=== PATIENT | male | born 1940 | race Caucasian/White ===

== ENCOUNTER 2016-10-23 14:07 | Inpatient (IN) | payer MEDICARE ==
[~2016-10-23] VITALS: Ht 180.3 cm; Wt 71.2 kg
[~2016-10-23 14:07] MED LIST: CITA20TA5 PO; CLOP75TA PO; FENO134C PO; METO50TA10 PO; TAMS0.4C2 PO; TAMS0.4C97 PO
[2016-10-23] MEDS ORDERED: IV NORMAL SALINE 1,000ML 1,000 ML ONE (14:22)
[2016-10-23] MEDS ORDERED: IV NORMAL SALINE 1,000ML 1,000 ML IV SCH (14:26)
--- NOTE | 2016-10-23 14:39 | PHYS DOC ---
General Chief Complaint: HYPOTENSION Stated Complaint: FEVER,LOW BP,DIZZY Time Seen by MD: 14:26 Source: patient, other (Esteban Sinha, Dr Ramirez records) Exam Limitations: no limitations Problems: History of Present Illness Initial Comments Pt is 76/M h/o CAD sent from PCP office to ED for fever, hypotension. Pt states for the past three days he's had nonproductive cough and nasal congestion. Fever yesterday 101.5 and at doctor office today 101.4 responsive to tylenol (afebrile in ED). Pt has dementia history, spouse states that when pt temp elevated his dementia appeared to worsen (confusion, memory) however these sx resolved with temperature control. Pt states that this morning he had some dizziness when up and active otherwise denies any pain complaints, no cp/ sob/howard/abdominal discomfort/bowel or bladder symptoms. ED VS: 98.6, 72, 92/52, 93% RA Timing/Duration: other (3 days) Severity: moderate Modifying Factors: worse with movement, improves with rest Associated Symptoms: fever/chills, malaise, other Allergies: Coded Allergies: No Known Drug Allergies (Unverified , 02/01/14) Past Medical History Medical History: other (dementia, DJD, depression, HLP, HTN, CAD, MT, Parkinson 's) Surgical History: other (tonsillectomy, CABG x 4, cardiac stents x 2, back surgery) Social History Smoker: quit greater than 1 year (quit in 1974, 3 PPD history x "years"), cigarettes Alcohol: none Drugs: none Review of Systems Constitutional: see HPI Respiratory: see HPI Cardiovascular: denies chest pain, denies palpitations, denies syncope Gastrointestinal: denies diarrhea, denies nausea, denies vomiting Genitourinary: denies dysuria, denies frequency, denies hematuria Musculoskeletal: denies back pain, denies joint swelling, denies neck pain Psychiatric/Neurological: see HPI, denies headache Physical Exam General Appearance: no apparent distress Eyes: bilateral eye normal inspection, bilateral eye PERRL, bilateral eye EOMI Ear, Nose, Throat: hearing grossly normal, normal ENT inspection, normal pharynx (dry membranes) Neck: non-tender, supple Respiratory: chest non-tender, no respiratory distress, other (coarse BS at bases good air movement ) Cardiovascular: normal peripheral pulses, regular rate, rhythm, no edema Gastrointestinal: non tender, soft Back: no CVA tenderness, no vertebral tenderness Extremities: non-tender, normal inspection, no pedal edema 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 PATIENT: JODY GASTON ACCOUNT: [id number] : 1940 LOCATION: ER AGE: 76 SEX: M EXAM STATUS: REG ER ORD. PHYSICIAN: NICOLA JERNIGAN DO REASON: fever, cough, hypotension, elev d-dimer PROCEDURE: CT ANGIOGRAPHY CHEST CTA of the chest with contrast, 10/23/2016: History: Cough, elevated d-dimer Multidetector CT imaging was performed following an IV bolus injection of iodinated contrast material. Multiplanar reconstructions were produced including coronal MIP images. The central pulmonary arteries are well opacified and no filling defects are seen to suggest pulmonary emboli. There is calcific plaquing of the thoracic aorta without evidence of aneurysm. Coronary artery calcifications are present. There has been a previous median sternotomy. There are subcarinal and right hilar calcified lymph nodes. No mediastinal or hilar adenopathy is seen. There are dependent opacities in the lungs, worse on the left. The findings suggest atelectasis, although a component of pneumonia cannot be excluded. There is a 6 mm nodule in the lateral aspect of the right lower lobe as seen on image 82 of series #5. In retrospect a similar nodule was present on an old study from 05/14/2005. This is probably a granuloma. No pleural fluid is present. Numerous small dense gallstones are present along the posterior wall of the gallbladder. No pericholecystic edema is seen. There is mild bilateral renal cortical scarring. Small bilateral renal cysts are present. IMPRESSION: 1. No CT evidence of central pulmonary emboli. 2. Coronary artery disease. 3. Moderate dependent atelectasis in both lungs, left greater than right. A component of pneumonia on the left cannot be excluded. 4. Cholelithiasis. PQRS Compliance Statement: One or more of the following individualized dose reduction techniques were utilized for this examination: 1. Automated exposure control 2. Adjustment of the mA and/or kV according to patient size 3. Use of iterative reconstruction technique DICTATED AND SIGNED BY: LENKA MENDOZA MD DATE: 10/23/16 7001 CC: ROLY RAMIREZ MD; NICOLA JERNIGAN DO ~ WBC 12, plt 139, d-dimer 1.92, lactic acid 1.1, t. bili 1.4, BNP 592, UA unremarkable, UDS/influenza A and B neg. Pt remains hypotensive after 2L NS IV, rocephin/levaquin, duoneb. No new/ progressive symptoms, pt is agreeable to hospital admission. 1718: Dr Burnette accepts inpt admission for hydration, IV antibiotics, observation. Departure Time of Disposition: 17:18 Disposition: 09 ADMITTED INPATIENT Diagnosis: LLL Pneumonia, hypotension, h/o CAD Condition: STABLE Additional Instructions: Inpt ICU admission Dr Burnette is accepting NICOLA JERNIGAN DO October 23, 2016 14:39
--- NOTE | 2016-10-23 14:45 | RAD ---
Indication hypotension. Protocol study. A single view of the chest was obtained and is compared to an examination 04/23/2015. Postoperative changes are noted. Inspiratory effort is not as good as on the previous exam. There is some minimal volume loss at the left lung base likely reflecting atelectasis. A definite consolidated pneumonia in either lung is not seen. Significant pleural fluid is not present. There is no pneumothorax. IMPRESSION: Suboptimal inspiratory effort. Minimal volume loss at the left lung base likely reflects atelectasis or scar
[2016-10-23 14:49] LABS: BASO # 0.1 x10^3/uL (0.0-0.2); BASO % 1 % (0-3); EOS % 0 % (0-3); HEMATOCRIT 43.6 % (39.0-53.0); HEMOGLOBIN 14.5 g/dL (13.0-17.5); LYMPH # 0.2 x10^3/uL (1.0-4.8); LYMPH % 2 % (24-48); MEAN CORPUSCULAR HEMOGLOBIN 30 pg (25-35); MEAN CORPUSCULAR HGB CONC 33 g/dL (31-37); MEAN CORPUSCULAR VOLUME 90 fL (79-100); MONO # 0.8 x10^3/uL (0.0-1.1); MONO % 7 % (0-9); NEUT # 10.9 x10^3uL (1.8-7.7); NEUT % 91 % (31-73); PLATELET COUNT 139 x10^3/uL (140-400); RED BLOOD COUNT 4.87 x10^6/uL (4.30-5.70); RED CELL DISTRIBUTION WIDTH 15.4 % (11.5-14.5)
[2016-10-23] MEDS ORDERED: cefTRIAXone SODIUM 1 GM VIAL IV ONE (14:53)
[2016-10-23] MEDS ORDERED: IV NORMAL SALINE 50ML 50 ML ONE (14:53)
[2016-10-23] MEDS ORDERED: IPRATRPIUM/ALBUTEROL 0.5/2.5MG 3 ML NEBU. NEB ONE (15:00)
[2016-10-23 15:06] LABS: ALBUMIN 3.4 g/dL (3.4-5.0); ALBUMIN/GLOBULIN RATIO 0.9 (1.0-1.7); CALCIUM 9.3 mg/dL (8.5-10.1); CREATININE 1.3 mg/dL (0.7-1.3); GFR 53.4; POTASSIUM 3.6 mmol/L (3.5-5.1); TOTAL BILIRUBIN 1.4 mg/dL (0.2-1.0); TOTAL PROTEIN 7.3 g/dL (6.4-8.2)
[2016-10-23 15:08] LABS: INFLUENZA A PATIENT NEGATIVE (NEGATIVE); INFLUENZA B PATIENT NEGATIVE (NEGATIVE)
[2016-10-23] MEDS ORDERED: IOHEXOL 300 MG/ML 75 ML VIAL. IV ONE (16:15)
[2016-10-23 16:17] LABS: BILIRUBIN,URINE NEG (NEG); CLARITY,URINE HAZY; COLOR,URINE YELLOW; GLUCOSE,URINE NEG (NEG); NITRITE,URINE NEG (NEG); UROBILINOGEN,URINE 1 mg/dL (0.2 mg/dL)
[2016-10-23 16:18] LABS: BARBITURATES NEG (NEG); BENZODIAZEPINES NEG (NEG); CANNABINOIDS NEG (NEG); COCAINE NEG (NEG); METHADONE NEG (NEG); OPIATES NEG (NEG); PHENCYCLIDINE NEG (NEG)
[2016-10-23 16:19] LABS: AMPHETAMINE/METHAMPHETAMINE NEG (NEG)
[2016-10-23 16:21] LABS: BACTERIA,URINE FEW /HPF (0-FEW); HYALINE CASTS, URINE MOD /HPF; SQUAMOUS EPITHELIAL CELL,UR MOD /LPF
--- NOTE | 2016-10-23 16:59 | RAD ---
CTA of the chest with contrast, 10/23/2016: History: Cough, elevated d-dimer Multidetector CT imaging was performed following an IV bolus injection of iodinated contrast material. Multiplanar reconstructions were produced including coronal MIP images. The central pulmonary arteries are well opacified and no filling defects are seen to suggest pulmonary emboli. There is calcific plaquing of the thoracic aorta without evidence of aneurysm. Coronary artery calcifications are present. There has been a previous median sternotomy. There are subcarinal and right hilar calcified lymph nodes. No mediastinal or hilar adenopathy is seen. There are dependent opacities in the lungs, worse on the left. The findings suggest atelectasis, although a component of pneumonia cannot be excluded. There is a 6 mm nodule in the lateral aspect of the right lower lobe as seen on image 82 of series #5. In retrospect a similar nodule was present on an old study from 05/14/2005. This is probably a granuloma. No pleural fluid is present. Numerous small dense gallstones are present along the posterior wall of the gallbladder. No pericholecystic edema is seen. There is mild bilateral renal cortical scarring. Small bilateral renal cysts are present. IMPRESSION: 1. No CT evidence of central pulmonary emboli. 2. Coronary artery disease. 3. Moderate dependent atelectasis in both lungs, left greater than right. A component of pneumonia on the left cannot be excluded. 4. Cholelithiasis. PQRS Compliance Statement: One or more of the following individualized dose reduction techniques were utilized for this examination: 1. Automated exposure control 2. Adjustment of the mA and/or kV according to patient size 3. Use of iterative reconstruction technique
[2016-10-23] MEDS ORDERED: ACETAMINOPHEN 325 MG TABLET PO PRN (17:30)
[2016-10-23] MEDS ORDERED: ONDANSETRON PF 4 MG/2 ML VIAL. IV PRN (17:30)
[2016-10-23 18:49] VITALS: BP 113/66
[2016-10-23] MEDS: IV NORMAL SALINE 1,000ML 1,000 ML IV SCH (19:23)
[2016-10-23 19:30] VITALS: BP 119/59
[2016-10-23 20:30] VITALS: BP 121/66
[2016-10-23] MEDS: IPRATRPIUM/ALBUTEROL 0.5/2.5MG 3 ML NEBU. NEB SCH (20:36)
[2016-10-23 21:30] VITALS: BP 121/63
[2016-10-23 22:30] VITALS: BP 137/66
--- NOTE | 2016-10-23 22:51 | ACF ---
Admission Criteria Forms PNEUMONIA, COMMUNITY ACQUIRED Clinical Indications for Admission to Inpatient Care ( Place 'X' for any and all applicable criteria): Admission is indicated for ANY ONE of the following (1)(2)(3): [ ]I. Hypoxemia indicated by ANY ONE of the following: [ ]a) Oxygen saturation less than 90% while breathing room air [ ]b) PO2 less than 60 mm Hg (8.0 kPa) while breathing room air [ ]c) Chronic lung disease with significant deterioration from baseline oxygenation [ ]II. Appropriate diagnostic testing and treatment unavailable in outpatient or recovery facility (eg,testing or infection control measures unavailable(10) [X ]III. Moderate-risk or high-risk category patients (Pneumonia Severity Index (PSI) class IV or V, or CURB-65 score of 3 or greater). [ ]IV. Outpatient treatment failure as indicated by ANY ONE of the following(9) : [ ]a) Failure to respond to antibiotic (eg, resistant organism) [ ]b) Clinically significant adverse effects from medication (eg, vomiting) [ ]c) Complications of pneumonia (eg, empyema, bacteremia) [ ]d) Significant worsening of comorbid cond necessitating inpatient care (eg, chronic heart failure) [ ]V. Intermediate-risk category patients (eg, PSI class III or CURB-65 score 2) who do not improve with initial therapy and observation. [ ]. Immunocompromised patients (eg, AIDS, chronic steroid use) at moderate or high risk based on clinical evaluation. [ ]VII. Complicated pleural effusions (eg, exudative, loculated) [ ]VIII.Hemodynamic instability [ ] IX. Altered mental status that is severe or persistent. [ ]X. Dehydration that is severe or persistent. [ ]XI. Bacteremia [ ]XII. Respiratory finding (eg. tachypnea) that do not respond to outpatient or observation care treatment Extended stay beyond goal length of stay may be needed for (20) [ ]a) Unclear diagnosis [ ]b) Pleural disease [ ]c) Severe pneumonia or treatment failure (25 [ ]d) Respiratory failure (anticipate invasive or noninvasive ventilatory support) [ ]e) Abnormal serum electrolytes (serum Na concentration less than 135 mEq/L (mmol/L) (32)(33) [ ]f) Clinically significant comorbid illness (eg, heart failure, atrial fibrillation with rapid heart rate, alcohol withdrawal, renal insufficiency)(34)(35) [ ]g) Comorbid acute exacerbation of COPD(36) [ ]h) Concomitant diagnosis of malignancy that may be associated with malnutrition, immunologic impairment, or bronchial obstruction. [ ]i) Concomitant altered mental status [ ]j) Culture-identified Gram-negative or antibiotic-resistant organism (eg, Pseudomonas, methicillin-resistant Staphylococcus aureus)(30) [ ]k) Healthcare-associated pneumonia The original [facility] content created by [employer] has been revised. The portions of the content which have been revised are identified through the use of italic text or in bold, and [facility] has neither reviewed nor approved the modified material. All other unmodified content is copyright [employer] [facility] [email or web address]. Please see references footnoted in the original [facility] edition 2016 Admission Criteria Met?: Yes BRAD WALSH October 23, 2016 22:51
[2016-10-23 23:30] VITALS: BP 106/59
[2016-10-24] VITALS (23 sets, daily range): BP systolic 105–154; BP diastolic 59–85
[2016-10-24] MEDS ORDERED: OXYB5TAB PO (01:18)
[2016-10-24] MEDS ORDERED: CARB1TAB22 PO (01:18)
[2016-10-24] MEDS ORDERED: MEMA5TAB14 PO (01:18)
[2016-10-24] MEDS ORDERED: ESOM40CA PO (01:18)
[2016-10-24] MEDS ORDERED: DONE10TA7 PO (01:18)
[2016-10-24] MEDS ORDERED: ATOR80TA72 PO (01:18)
[2016-10-24] MEDS ORDERED: METO25TA4 PO (01:18)
[2016-10-24] MEDS: IV NORMAL SALINE 1,000ML 1,000 ML IV SCH ×4 (01:23→23:20)
--- NOTE | 2016-10-24 01:37 | EKG ---
[address] [address] Test Date: 2016-10-23 Test Time: 14:32:30 Pat Name: JODY GASTON Department: Room: [facility] 1 Gender: M [employer] Practitioner: ERICK : 1940 Requested By: NICOLA JERNIGAN Order Number: [id number] Reading MD: Mac Mackey Measurements Intervals [place] Rate: 66 P: 23 HI: 164 QRS: -43 QRSD: 114 T: -27 QT: 428 QTc: 451 Interpretive Statements SINUS RHYTHM ATRIAL PREMATURE COMPLEX(ES) ABNORMAL LEFT AXIS DEVIATION PRIOR INFERIOR INFARCT NON-SPECIFIC ST/T CHANGES Electronically Signed On 10-27-2016 9:44:31 CDT by Mac Mackey
[2016-10-24 04:48] LABS: BASO % 0 % (0-3); EOS % 0 % (0-3); HEMATOCRIT 38.6 % (39.0-53.0); HEMOGLOBIN 12.7 g/dL (13.0-17.5); LYMPH # 0.5 x10^3/uL (1.0-4.8); LYMPH % 6 % (24-48); MEAN CORPUSCULAR HEMOGLOBIN 30 pg (25-35); MEAN CORPUSCULAR HGB CONC 33 g/dL (31-37); MEAN CORPUSCULAR VOLUME 92 fL (79-100); MONO # 0.7 x10^3/uL (0.0-1.1); MONO % 7 % (0-9); NEUT # 7.6 x10^3uL (1.8-7.7); NEUT % 87 % (31-73); PLATELET COUNT 115 x10^3/uL (140-400); RED CELL DISTRIBUTION WIDTH 15.4 % (11.5-14.5); WHITE BLOOD COUNT 8.8 x10^3/uL (4.0-11.0)
[2016-10-24 04:57] LABS: CALCIUM 8.1 mg/dL (8.5-10.1); GFR 72.3; POTASSIUM 3.6 mmol/L (3.5-5.1)
[2016-10-24] MEDS: IPRATRPIUM/ALBUTEROL 0.5/2.5MG 3 ML NEBU. NEB SCH ×3 (05:25→17:21)
[2016-10-24] MEDS ORDERED: MAGNESIUM SULFATE 2GM 50 ML IV ONE (06:30)
[2016-10-24] MEDS: TAMSULOSIN 0.4 MG CAP.ER.24H. PO SCH (09:20)
[2016-10-24] MEDS: CITALOPRAM 20 MG TABLET. PO SCH (09:20)
[2016-10-24] MEDS: FENOFIBRATE NANOCRYSTALLIZED 145 MG TABLET PO SCH (09:20)
[2016-10-24] MEDS: CLOPIDOGREL BISULFATE 75 MG TABLET PO SCH (09:31)
[2016-10-24] MEDS ORDERED: MULT-245 PO (11:46)
[2016-10-24] MEDS ORDERED: NAPR375T3 PO (11:46)
[2016-10-24] MEDS ORDERED: FISH12002 PO (11:47)
[2016-10-24] MEDS ORDERED: CHOL10002 PO (11:49)
[2016-10-24] MEDS ORDERED: CHOL100013 PO (11:49)
[2016-10-24] MEDS ORDERED: VITA100020 PO (11:51)
[2016-10-24] MEDS ORDERED: PYRI100T3 PO (11:54)
[2016-10-24] MEDS ORDERED: ASCO10002 PO (11:55)
[2016-10-24] MEDS ORDERED: CARBIDOPA/LEVODOPA 25/100MG TABLET PO ONE (14:00)
[2016-10-24] MEDS ORDERED: CARBIDOPA/LEVODOPA 25/100MG TABLET PO SCH (14:00)
--- NOTE | 2016-10-24 15:07 | HP ---
ADMIT DATE: 10/23/2016 HISTORY OF PRESENT ILLNESS: The patient is a 76-year-old male patient, who apparently sent to the Emergency from his primary care physician on account of fever and hypotension. Apparently, the patient has been having cough and nasal congestion. The cough is mostly dry. He also had fever up to 101.5, that has responded to Tylenol as he was afebrile by the time he arrived to the Emergency Room and his stated that he became more confused after he became febrile. He also felt dizzy when he stood up, otherwise his pain mostly is in the left side of the chest, mostly worse when taking a deep breath; however, denied any shortness of breath. Denied any other complaint. He was evaluated in the Emergency Room and it was found to have leukocytosis with a white cell count 12,000. His D-dimer was high and this prompted CT scan of the chest with PE protocol, which showed that he has left lower lobe infiltrate and the patient was admitted with diagnosis of community-acquired pneumonia, was started on IV ceftriaxone as well as Levaquin. We held his blood pressure medication and received large amount of fluid. Systolic pressure was only 17 on arrival to the Emergency Room. PAST MEDICAL HISTORY: Significant for hypertension, hyperlipidemia, coronary artery disease, status post myocardial infarction x 3. He underwent coronary artery bypass graft surgery in 1998. He has also had PTCA and stent deployment x 3. He is known to have benign prostatic hypertrophy. He was diagnosed with Parkinson's disease about a year ago, has severe osteoarthritis of his both knee joints and in fact knee replacement was recommended and also severe rotator cuff tear of his left shoulder and he is also a candidate for left shoulder replacement. PAST SURGICAL HISTORY: Significant for back surgery, coronary artery bypass graft surgery, tonsillectomy, PTCA and stent deployment x 3. ALLERGIES: He has no known drug allergies. MEDICATIONS: He is currently on following medications: He is on ascorbic acid 1000 mg once a day, atorvastatin 80 mg at bedtime, carbidopa/levodopa 25/100 three times a day, cholecalciferol for vitamin D3 1000 units once a day, citalopram hydrobromide 20 mg once a day, Plavix 75 mg once a day, donepezil 10 mg once a day, Nexium capsule 40 mg once a day, fenofibrate 134 mg once a day, omega-3 fatty acids 1200 mg twice a day, Namenda 5 mg twice a day, metoprolol 25 mg twice a day, multivitamin 1 tablet once a day, naproxen 375 mg twice a day, oxybutynin chloride 5 mg once a day, pyridoxine 100 mg once a day, tamsulosin 0.4 mg at bedtime, vitamin E mixed 1000 units p.o. b.i.d. FAMILY HISTORY: He has one sister, who is younger and healthy. His father at age of 85 because of congestive heart failure. Mother at age of 76 because of cerebral aneurysm. SOCIAL HISTORY: He is , has 1 son and 1 daughter. He is an ex-smoker, quit in 1974. He does not drink alcohol. He used to be an auto transmission mechanic and also worked for [employer]. REVIEW OF SYSTEMS: The patient denied any blurring of vision, cataract, glaucoma or macular degeneration. 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 Denied any nosebleeds, stuffy nose or postnasal drip. Denied any sore throat, sore tongue, toothache, hoarseness of voice or difficulty swallowing. Denied any nausea, vomiting, diarrhea or constipation. Denied any hematemesis, melena or hematochezia. Denied any dysuria, frequency or hematuria. Did complain of left-sided chest pain that is stabbing in nature, worse when taking a deep breath. Denied any shortness of breath, but has cough that is mostly dry. Denied any hemoptysis. He did have fever, but no chills or rigors. Did complain of dizziness. PHYSICAL EXAMINATION: GENERAL: On arrival to the Emergency Room, the patient showed no pallor, jaundice, cyanosis, or thyromegaly. No jugular venous distention. No lower limb edema. VITAL SIGNS: His heart rate was 72, blood pressure was 94/58, temperature was 98.6, respiratory rate was 16, and oxygen saturation was 93% on room air. HEAD, EYES, EARS, NOSE AND THROAT: Showed normocephalic, atraumatic. NECK: Supple. HEART: Showed normal first and second heart sounds with no gallop, rub or murmur. CHEST: Shows central trachea, equal bilateral expansion, air entry. Vesicular breath sounds with crepitation mostly in the left side posteriorly. I could not really appreciate any rhonchi. ABDOMEN: Distended, soft, nontender. No guarding or rigidity. No organomegaly. All hernial orifices intact. Bowel sounds normal. NEUROLOGIC: He is very hard of hearing, otherwise all other cranial nerves are intact. He has prominent parkinsonian tremors, more prominent in the right upper extremity; however, he apparently able to ambulate with a cane. LABORATORY DATA: On admission showed a white cell count 12,000, hemoglobin was 14.5, hematocrit 43.6, MCV 90 and platelet count of 139,000. His chemistry showed serum sodium of 139, potassium 3.6, chloride 103, bicarbonate 26, anion gap of 10, BUN 20, creatinine 1.3, estimated GFR was 53 mL per minute. His glucose was 129, calcium was 9.3. Total bilirubin slightly elevated; however, AST, ALT, alkaline phosphatase were normal. His CK was only 64, beta natriuretic peptide was 592. Total protein was 7.3, albumin 3.4. His prothrombin time was 11.7, INR 1.1, aPTT 27 and D-dimer was 1.92. Urinalysis was essentially unremarkable and urine toxicology screen was negative. His influenza A and B were negative. His chest x-ray showed suboptimal inspiratory effort showed minimal volume loss at the left lung base, likely reflect atelectasis scar; however, given that his D-dimer was elevated. CT angio of the chest showed that he has no CT evidence of central pulmonary emboli, has coronary artery disease, has moderate dependent atelectasis in both lungs left greater than right. Component of pneumonia on the left cannot be excluded. He has also cholelithiasis. IMPRESSION AND PLAN: The patient was admitted with following admission diagnoses: Community-acquired pneumonia involving left lower lobe sepsis with hypotension and fever. The patient did not have tachycardia because he is on metoprolol. Other medical problems including hyperlipidemia, coronary artery disease, status post CABG, has Parkinson's disease, benign prostatic hypertrophy, severe osteoarthritis of both knee joints and severe rotator cuff tear of the left shoulder. We will continue with IV ceftriaxone as well as levofloxacin. We will hold his metoprolol for now and decide on further management accordingly. JANETT DU MD DR: OLIVER/kita JOB#: [id number] / [id number]
[2016-10-24] MEDS: MEMANTINE 5 MG TABLET. PO SCH (20:44)
[2016-10-24] MEDS: CARBIDOPA/LEVODOPA 25/100MG TABLET PO SCH (20:45)
[2016-10-24] MEDS: OMEGA-3 FATTY ACIDS/FISH OIL 1,000 MG CAPSULE. PO SCH (20:45)
[2016-10-24] MEDS: NAPROXEN 250 MG TABLET PO SCH (20:45)
[2016-10-24] MEDS ORDERED: ATORVASTATIN CALCIUM 20 MG TABLET PO SCH (21:00)
[2016-10-24] MEDS ORDERED: IV NORMAL SALINE 1,000ML 1,000 ML ONE (23:16)
[2016-10-25] VITALS (14 sets, daily range): BP systolic 111–153; BP diastolic 73–107
--- NOTE | 2016-10-25 04:29 | PN ---
DATE: 10/24/2016 SUBJECTIVE: The patient is resting slightly propped up in bed, in no apparent distress. He feels generally much better. He is still complaining of left-sided chest pain, which is sharp, stabbing, aggravates by taking a deep breath; however, he has no fever. His blood pressure is somewhat better. PHYSICAL EXAMINATION: GENERAL: When I examined him, he looked well and was clearly in no apparent respiratory distress. No pallor, jaundice, cyanosis, lymphadenopathy or thyromegaly. No jugular venous distention. No limb edema. VITAL SIGNS: His heart rate was 78, blood pressure was 120/73, temperature was 98.4, respiratory rate was 20, and oxygen saturation was 97% on room air. HEAD, EYES, EARS, NOSE AND THROAT: Showed normocephalic, atraumatic. NECK: Supple. HEART: Showed normal first and second heart sounds with no gallop, rub or murmur. CHEST: Shows central trachea, equal bilateral expansion, air entry, vesicular sounds with crepitation mostly in the left side posteriorly. I could not appreciate any rhonchi. ABDOMEN: Distended, soft, nontender. No guarding or rigidity. No organomegaly. Hernial orifices intact. Bowel sounds normal. NEUROLOGIC: He is very hard of hearing and has prominent parkinsonian tremors, mostly in his right upper extremity. He apparently is able to ambulate with a cane. His intake was 4170, output was 1200. LABORATORY DATA: His lab work this morning showed a white cell count of 8800, hemoglobin 12.7, hematocrit 38.6, MCV 92, and platelet count of 115,000. His chemistry this morning showed a serum sodium 142, potassium 3.6, chloride 108, bicarbonate 22, anion gap of 12, BUN 15, creatinine 1, estimated GFR was 72 mL per minute. His glucose was 103, calcium was 8.1, magnesium was 1.7. He has had 3 sets of cardiac enzymes that were all negative, showed no evidence of myocardial infarction. PLAN: To continue with IV antibiotic in the form of levofloxacin as well as ceftriaxone. Continue with IV fluid for now and cut down to maybe 100 mL per hour. I will hold his beta-blockers for the time being. I will add SCDs for DVT prophylaxis. JANETT DU MD DR: Kristyn JOB#: [id number] / [id number]
[2016-10-25 06:12] LABS: BASO % 0 % (0-3); EOS # 0.2 x10^3/uL (0.0-0.7); EOS % 3 % (0-3); HEMATOCRIT 38.8 % (39.0-53.0); LYMPH # 0.6 x10^3/uL (1.0-4.8); LYMPH % 11 % (24-48); MEAN CORPUSCULAR HEMOGLOBIN 30 pg (25-35); MEAN CORPUSCULAR HGB CONC 34 g/dL (31-37); MEAN CORPUSCULAR VOLUME 89 fL (79-100); MONO # 0.6 x10^3/uL (0.0-1.1); MONO % 10 % (0-9); NEUT # 4.5 x10^3uL (1.8-7.7); NEUT % 77 % (31-73); PLATELET COUNT 128 x10^3/uL (140-400); RED BLOOD COUNT 4.35 x10^6/uL (4.30-5.70); WHITE BLOOD COUNT 5.8 x10^3/uL (4.0-11.0)
[2016-10-25 06:30] LABS: ALBUMIN 2.6 g/dL (3.4-5.0); ALBUMIN/GLOBULIN RATIO 0.7 (1.0-1.7); CALCIUM 8.6 mg/dL (8.5-10.1); GFR 72.3; POTASSIUM 3.7 mmol/L (3.5-5.1); TOTAL BILIRUBIN 0.5 mg/dL (0.2-1.0); TOTAL PROTEIN 6.3 g/dL (6.4-8.2)
[2016-10-25] MEDS ORDERED: PANTOPRAZOLE 40 MG TABLET. PO SCH (07:30)
[2016-10-25] MEDS: CITALOPRAM 20 MG TABLET. PO SCH (08:48)
[2016-10-25] MEDS: OMEGA-3 FATTY ACIDS/FISH OIL 1,000 MG CAPSULE. PO SCH (08:48)
[2016-10-25] MEDS: TAMSULOSIN 0.4 MG CAP.ER.24H. PO SCH (08:48)
[2016-10-25] MEDS: FENOFIBRATE NANOCRYSTALLIZED 145 MG TABLET PO SCH (08:49)
[2016-10-25] MEDS: CLOPIDOGREL BISULFATE 75 MG TABLET PO SCH (08:49)
[2016-10-25] MEDS: CARBIDOPA/LEVODOPA 25/100MG TABLET PO SCH ×2 (08:49→13:49)
[2016-10-25] MEDS ORDERED: OXYBUTYNIN CHLORIDE 5 MG TABLET PO SCH (09:00)
[2016-10-25] MEDS ORDERED: MULTIVITAMIN with MINERAL TABLET. PO SCH (09:00)
[2016-10-25] MEDS ORDERED: CHOLECALCIFEROL (VITAMIN D3) 1,000 UNIT TABLET PO SCH (09:00)
[2016-10-25] MEDS ORDERED: ASCORBIC ACID 500 MG TABLET PO SCH (09:00)
[2016-10-25] MEDS ORDERED: PYRIDOXINE 100 MG TABLET. PO SCH (09:00)
[2016-10-25] MEDS ORDERED: DONEPEZIL HCL 10 MG TABLET PO SCH (09:00)
[2016-10-25] MEDS ORDERED: VITAMIN E 1,000 UNIT CAPSULE. PO SCH (09:00)
[2016-10-25] MEDS: NAPROXEN 250 MG TABLET PO SCH (09:20)
[2016-10-25] MEDS: MEMANTINE 5 MG TABLET. PO SCH (09:20)
[2016-10-25] MEDS: IV NORMAL SALINE 1,000ML 1,000 ML IV SCH (12:24)
[2016-10-25] MEDS ORDERED: LEVO500T59 PO (13:17)
[2016-10-25] MEDS ORDERED: CEFP200T PO (13:17)
--- NOTE | 2016-10-25 22:11 | DS ---
DATE OF DISCHARGE: 10/25/2016 HOSPITAL COURSE: This is a 76-year-old male patient who was admitted through the Emergency Department as a referral from his primary care physician's office and because of fever and hypotension. Apparently, his temperature was 101.4 at home and he was also hypotensive with a blood pressure initially of 94/58. His white cell count was high. His lactic acid, however, was only 1.1 millimole per liter was. He was given almost 3 liters of fluid in the Emergency Room, was started on IV ceftriaxone and Levaquin. He did actually extremely well. He has been afebrile for the last 72 hours. PHYSICAL EXAMINATION: VITAL SIGNS: His blood pressure has normalized and as of this afternoon, his heart rate was 83, blood pressure was 133/76, temperature was 98.2, respiratory rate was 12 and oxygen saturation was 96% on room air. HEENT: Showed normocephalic, atraumatic. NECK: Supple. HEART: Showed normal first and second heart sounds with no gallop, rub or murmur. CHEST: Clear to auscultation. Chest shows central trachea, equal bilateral expansion, air entry, with few crepitation, mostly on the left side posteriorly, although they are much less than before. I could not appreciate any rhonchi. ABDOMEN: Slightly distended, soft, nontender. NEUROLOGICAL: He was awake, alert, hard of hearing, but all the cranial nerves are intact. He has a prominent parkinsonian tremor, mostly in his right upper extremity; however, the patient has been out of bedside to the bathroom without difficulty. LABORATORY DATA: His lab work showed that his white cell count has normalized, down to 5800 from 12,000. Although he continued to have thrombocytopenia, as he remained hemodynamically stable, afebrile, and white cell count was normal and has been up and about without, and his blood pressure stabilized, the decision was made to discharge him home to continue antibiotic treatment as an outpatient and to follow with his primary care physician. DISCHARGE MEDICATIONS: Discharged on following medications: cefpodoxime proxetil 200 mg twice a day for 7 days, levofloxacin 500 mg once a day for 7 days. He was continued also on the ascorbic acid 1000 mg once a day, atorvastatin calcium 80 mg once a day, carbidopa/levodopa 25/100 one tablet 3 times a day, cholecalciferol for vitamin D3 2000 international units once a day, citalopram hydrobromide 1 tablet p.o. daily, Plavix 75 mg once a day, Aricept 10 mg once a day, Nexium 40 mg daily, fenofibrate 134 mg 1 capsule daily, fish oil soft gel 1200 mg twice a day, Namenda 5 mg twice a day, metoprolol 25 mg p.o. b.i.d., multivitamin 1 tablet once a day, naproxen 375 mg once a day, oxybutynin chloride 5 mg once a day, pyridoxine 100 mg once a day, tamsulosin 0.4 mg capsule extended release once a day at bedtime and vitamin E 1000 units p.o. b.i.d. FINAL DISCHARGE DIAGNOSES: 1. Sepsis, resolved. 2. Community acquired pneumonia, resolved. The patient is afebrile, hemodynamically stable with normal white cell count. Other issues include hypertension, hyperlipidemia, coronary artery disease status post myocardial infarction x 3 for which he underwent coronary artery bypass graft surgery as well as PTCA and stent deployment, benign prostatic hypertrophy, Parkinson's disease, severe osteoarthritis of both knee joints and left shoulder. JANETT DU MD DR: OLIVER/kita JOB#: [id number] / [id number]
== END 2016-10-25 14:05 | disposition home or self-care (01) | DRG 871 ==
LOC: ER 14:07 → EEVIPCON 14:07 → ER 17:22 → ICU 17:22
PROVIDERS: ADMIT Internal Medicine; ATTEND Internal Medicine
DX: A41.9 Sepsis, unspecified organism (principal); J18.9 Pneumonia, unspecified organism; E78.5 Hyperlipidemia, unspecified; F03.90 Unspecified dementia, unspecified severity, without behavioral disturbance, psychotic disturbance, mood disturbance, and anxiety; G20 Parkinson's disease; I10 Essential (primary) hypertension; I25.10 Atherosclerotic heart disease of native coronary artery without angina pectoris; K80.20 Calculus of gallbladder without cholecystitis without obstruction; N28.1 Cyst of kidney, acquired; N40.0 Benign prostatic hyperplasia without lower urinary tract symptoms; M17.0 Bilateral primary osteoarthritis of knee; F32.9 Major depressive disorder, single episode, unspecified; M75.102 Unspecified rotator cuff tear or rupture of left shoulder, not specified as traumatic; M19.012 Primary osteoarthritis, left shoulder; Z82.49 Family history of ischemic heart disease and other diseases of the circulatory system; I25.2 Old myocardial infarction; Z87.891 Personal history of nicotine dependence; Z95.1 Presence of aortocoronary bypass graft; Z95.5 Presence of coronary angioplasty implant and graft; Z98.890 Other specified postprocedural states; Z79.02 Long term (current) use of antithrombotics/antiplatelets; Z84.89 Family history of other specified conditions
CPT/HCPCS: 36415; 71010; 71275; 80048; 80053; 81001; 82550; 83605; 83735; 83880; 84484; 85027; 85379; 85610; 85730; 87040; 87641; 87804; 93005; 94640; 96361; 96365; 96366; 96367; G0480; G0481; J0696; J1956; J3475; J7620; Q9967; 99285-25; J7030

== ENCOUNTER 2017-04-19 11:53 | Emergency (ER) | payer MEDICARE ==
[~2017-04-19] VITALS: Ht 180.3 cm; Wt 65.8 kg
[~2017-04-19 11:53] MED LIST changes: +ASCO10002 PO; +ATOR80TA72 PO; +CARB1TAB22 PO; +CEFP200T PO; +CHOL100013 PO; +CHOL10002 PO; +DONE10TA7 PO; +ESOM40CA PO; +FISH12002 PO; +LEVO500T59 PO; +MEMA5TAB14 PO; +METO25TA4 PO; -METO50TA10 PO; +METO50TA29 PO; +MULT-245 PO; +NAPR-695 PO; +OXYB5TAB PO; +PYRI100T3 PO; +VITA100020 PO
[2017-04-19 12:45] VITALS: BP 99/56
--- NOTE | 2017-04-19 12:56 | PHYS DOC ---
General Chief Complaint: NOSEBLEED Stated Complaint: NOSE BLEED Time Seen by MD: 12:05 Source: patient Exam Limitations: no limitations Problems: History of Present Illness Initial Comments Patient is a 76-year-old male accompanied to the emergency department with his spouse with a complaint of nosebleed. Patient states he has no prior history of epistaxis, states his nose is been a little dry but he hasn't had any upper respiratory cold symptoms. Earlier today he developed sudden onset nosebleed from his left nare. He was able to get it stopped several times but Blowing his nose and after clearing clots his nose would begin bleeding again. After several attempts to get it to stop his decided to bring him to the emergency department. Patient takes aspirin and Plavix no other anticoagulation, he's not had any other spontaneous bleeding or extra bruising above normal. Upon arrival to the emergency department he has no active bleeding, there is dried blood noted in his left nostril. He denies any lightheadedness dizziness headache palpitations or dyspnea. It was decided that we would observe the patient for short-term to make sure no rebleed and he was agreeable. 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, kidney stones) Surgical History: other (CABG in 1998, cardiac stents 3, back surgery, tonsillectomy, AAA repair and iliac vessel repair last week at [facility] ) Social History Smoker: non-smoker Alcohol: none Drugs: none Constitutional: denies chills, denies diaphoresis, denies fever, denies malaise Eyes: denies blindness, denies blurred vision, denies drainage Ears: denies dizziness, denies pain, denies tinnitus Nose: clots, denies congestion, epistaxis Throat: denies pain, denies discharge, denies neck stiffness, denies painful swallowing Respiratory: denies cough, denies shortness of breath Gastrointestinal: denies nausea, denies vomiting Neurological: denies headache, denies numbness, denies paresthesia Physical Exam General Appearance: WD/WN, no apparent distress Eyes: bilateral eye normal inspection, bilateral eye PERRL, bilateral eye EOMI Nose: dried blood (L nare, R clear) Mouth/Throat: normal mouth inspection, pharynx normal Neck: non-tender, supple Cardiovascular/Respiratory: normal peripheral pulses, no respiratory distress Neurologic/Psychiatric: community advocate II-XII nml as tested, no motor/sensory deficits, alert, normal mood/affect, oriented x 3 Skin: normal color, warm/dry Orders, Labs, Meds I was called to the room because the patient felt like his bleeding stopped and he was ready to go. Recheck did reveal that there is no new bleeding some dried blood remains but the patient has following instructions and hasn't been blowing his nose. I asked him to walk up and down the coulter to see if the increase in blood pressure with cause a rebleed as I didn't want him to get home and run into similar problems. Patient made the trip through the halls without event and advise she is ready to go. Signs and symptoms to monitor as well as indications for urgent return to the department discussed. Similarly I went through [id number] instructions on what to do if rebleeding occurred at home. I discussed this with the patient and his spouse their questions were answered and they expressed agreement and understanding with the treatment plan and follow-up. Departure Time of Disposition: 12:53 Disposition: 01 HOME, SELF-CARE Diagnosis: epistaxis Condition: IMPROVED Patient Instructions: Nosebleed, [id number] Additional Instructions: Please review the patient education materials given by ED staff. As discussed if you have a recurrence of nosebleed you want to initially bend your head forward and take a cold wet washcloth pinch your nostrils together, maintain that position for 15 minutes. If unsuccessful you can try the initial measures again or you may choose to return to the emergency room. [id number] nasal saline drops dosing per package instructions to try to prevent future nosebleeds. Follow-up with your doctor in 2-3 days for recheck, if you have recurrence may need referral to ear nose and throat. Return to the ED with new or changing symptoms. NICOLA JERNIGAN DO Apr 19, 2017 12:56
== END 2017-04-19 13:00 | disposition home or self-care (01) ==
LOC: ER 11:53
DX: R04.0 Epistaxis (principal); E78.5 Hyperlipidemia, unspecified; G20 Parkinson's disease; I10 Essential (primary) hypertension; I25.10 Atherosclerotic heart disease of native coronary artery without angina pectoris; N40.0 Benign prostatic hyperplasia without lower urinary tract symptoms; I25.2 Old myocardial infarction; M17.0 Bilateral primary osteoarthritis of knee; M19.012 Primary osteoarthritis, left shoulder; Z79.82 Long term (current) use of aspirin; Z87.442 Personal history of urinary calculi; Z95.5 Presence of coronary angioplasty implant and graft; Z95.1 Presence of aortocoronary bypass graft
CPT/HCPCS: 99281

== ENCOUNTER → 2017-07-23 | Outpatient (CLI) | payer MEDICARE ==
--- NOTE | 2017-07-24 09:11 | RAD ---
Chest radiograph 07/23/2017 2:00 AM Indication: Cough Comparison: Chest radiograph 10/23/2016 Technique: PA and lateral views of the chest are provided. Findings: Median sternotomy changes are present. Cardiomediastinal silhouette is within normal limits. No pleural effusions, pulmonary vascular congestion or pneumothorax. The lungs are clear. There is a 7 mm nodular density in the left lower lobe projecting over the anterior aspect of the left sixth rib. Osseous structures are normal. Coronary vascular stent graft is noted. Vascular stent is partially profiled in the abdomen. Impression: No acute cardiopulmonary process. There is a 7 mm nodular density in the left lower lobe projecting over the anterior aspect of left sixth rib. This may represent nipple shadow, however a a CT chest may be of benefit.
== END | disposition home or self-care (01) ==
LOC: RAD 16:46
PROVIDERS: ATTEND Nurse Practitioner Family
DX: R05 Cough (principal)
CPT/HCPCS: 71046

== ENCOUNTER → 2017-07-27 | Outpatient (CLI) | payer MEDICARE ==
--- NOTE | 2017-07-27 13:00 | RAD ---
CT chest without contrast 07/27/2017 Clinical indication: Left lung base nodule seen on chest radiograph 07/23/2017 Technique: Multiple CT images of the chest were obtained without contrast. PQRS Compliance Statement: One or more of the following individualized dose reduction techniques were utilized for this examination: 1. Automated exposure control 2. Adjustment of the mA and/or kV according to patient size 3. Use of iterative reconstruction technique Findings: Chest: Heart size is normal without significant pericardial effusion. Prior median sternotomy and CABG. Three-vessel lower [place] coronary artery calcifications. The thoracic aorta is normal in caliber with mild calcified atheromatous disease. No axillary, mediastinal or obvious hilar lymphadenopathy. Mediastinal and right hilar calcified granulomas are noted. The central airways are patent. There is a subpleural noncalcified nodule in the lateral right lower lobe measuring 0.5 cm series 2/image 214. Scattered areas of pleural-parenchymal scarring throughout both lungs. No discrete nodule in the left lung base to account for nodular opacity seen on recent chest radiograph. Calcified granuloma in the posterior left lower lobe. No pleural effusion or pneumothorax. Moderate left glenohumeral arthrosis. There is a nondisplaced angulated anterior right rib fracture deformity. Small sclerotic lesion posterior T5 vertebral body. Limited images of the upper abdomen: Cholelithiasis. Subcentimeter left hepatic cyst. Nonobstructive calculus left kidney measuring 0.4 cm. There is a small left renal cyst. Impression: 1. 0.5 cm right lung noncalcified pulmonary nodule, indeterminate. Follow-up CT chest in 6 months is recommended to assess for stability. 2. No left lung base nodule, chest radiograph finding may have represented nipple shadow. 3. Cholelithiasis. 4. Nonobstructive left nephrolithiasis. 5. Nondisplaced anterior right rib fracture deformity, age indeterminate. Clinical correlation is recommended.
== END | disposition home or self-care (01) ==
LOC: CT 10:56
PROVIDERS: ATTEND Nurse Practitioner Family
DX: S22.31XA Fracture of one rib, right side, initial encounter for closed fracture (principal); J84.10 Pulmonary fibrosis, unspecified; I70.0 Atherosclerosis of aorta; K80.20 Calculus of gallbladder without cholecystitis without obstruction; N20.0 Calculus of kidney; N28.1 Cyst of kidney, acquired; M19.012 Primary osteoarthritis, left shoulder; K76.89 Other specified diseases of liver; X58.XXXA Exposure to other specified factors, initial encounter; Y93.89 Activity, other specified; Y92.89 Other specified places as the place of occurrence of the external cause; Y99.8 Other external cause status
CPT/HCPCS: 71250

== ENCOUNTER → 2018-01-20 | Outpatient (CLI) | payer MEDICARE ==
[~2018-01-20] MED LIST changes: -CITA20TA5 PO; +CITA20TA6 PO
--- NOTE | 2018-01-20 16:14 | RAD ---
EXAM: 3 views both knees DATE: 01/20/2018 3:12 PM INDICATION: bilateral knee pain COMPARISON: No Prior FINDINGS: Right knee: No evidence of acute fracture or dislocation. Joint spaces are preserved with tricompartmental osteophytes. No knee joint effusion. Chondrocalcinosis. Several joint bodies are seen posteriorly. Left knee: No evidence of acute fracture or dislocation. Exaggerated curvature of the medial tibial plateau possibly projectional. Joint spaces are preserved. Tricompartment osteophytes are seen. Chondrocalcinosis. Joint bodies are suspected posteriorly. Surgical clips are seen in the medial soft tissues. IMPRESSION: Bilateral knee joint osteoarthritis. Chondrocalcinosis suggests component of CPPD arthropathy. Joint bodies are seen posteriorly bilaterally. Electronically signed by: Julio César Mack MD (01/20/2018 4:11 PM) [id number]
== END | disposition home or self-care (01) ==
LOC: PMG 14:59
PROVIDERS: ATTEND Family Medicine
DX: M17.0 Bilateral primary osteoarthritis of knee (principal); M11.262 Other chondrocalcinosis, left knee; M11.261 Other chondrocalcinosis, right knee; M25.762 Osteophyte, left knee; M25.761 Osteophyte, right knee; I25.2 Old myocardial infarction; I10 Essential (primary) hypertension; E78.5 Hyperlipidemia, unspecified; I25.10 Atherosclerotic heart disease of native coronary artery without angina pectoris; Z95.5 Presence of coronary angioplasty implant and graft; Z95.1 Presence of aortocoronary bypass graft; Z87.442 Personal history of urinary calculi; Z87.891 Personal history of nicotine dependence; Z82.49 Family history of ischemic heart disease and other diseases of the circulatory system; Z84.89 Family history of other specified conditions
CPT/HCPCS: 73562

== ENCOUNTER → 2018-10-04 | Outpatient (CLI) | payer MEDICARE ==
--- NOTE | 2018-10-04 13:42 | RAD ---
CT of the chest without contrast Indication: [Follow-up pulmonary nodules] Comparison study: [CT chest February 04, 2018] Technique: Multidetector CT imaging of the chest was performed without the administration of intravenous contrast. Findings: Heart size is normal. Atherosclerotic vascular disease including coronary calcification noted. No significant pericardial effusion is seen. No pathologic mediastinal adenopathy is identified. No focal consolidation or infiltrate is seen. No pneumothorax or pleural effusion is seen. Linear opacities throughout the lungs consistent with scarring or atelectasis are similar. Scattered small sub-5 mm pulmonary nodules are stable from prior exam. Slightly more prominent 5 mm nodule in the right lower lobe is also stable in appearance best seen on axial image 67. No acute osseous abnormality is identified. Limited visualization of the upper abdomen demonstrates no acute abnormality. Impression: 1.No evidence of acute cardiopulmonary process. 2. Stable pulmonary nodules as described, including 5 mm noncalcified nodule, right lower lobe CT DOSING PQRS STATEMENT: One or more of the following individualized dose reduction techniques were utilized for this examination: 1. Automated exposure control 2. Adjustment of the mA and/or kV according to patient size 3. Use of iterative reconstruction technique Electronically signed by: Nickolas Peña MD (10/04/2018 1:38 PM) [facility]
== END | disposition home or self-care (01) ==
LOC: CT 10:55
PROVIDERS: ATTEND Family Medicine
DX: R91.8 Other nonspecific abnormal finding of lung field (principal); I25.10 Atherosclerotic heart disease of native coronary artery without angina pectoris
CPT/HCPCS: 71250

== ENCOUNTER → 2019-10-10 | Outpatient (CLI) | payer MEDICARE ==
[~2019-10-10] MED LIST changes: -MEMA5TAB14 PO; +MEMA5TAB42 PO; +OXYB-36 PO; -OXYB5TAB PO
--- NOTE | 2019-10-10 14:01 | RAD ---
CT CHEST WO CONTRAST Indication: Lung nodule Technique: Noncontrast CT imaging was performed of the chest, multiplanar reconstruction images submitted. One or more of the following individualized dose reduction techniques were utilized for this examination: 1. Automated exposure control 2. Adjustment of the mA and/or kV according to patient size 3. Use of iterative reconstruction technique. Comparison: October 04, 2018; October 23, 2016 Findings: Small 4-5 mm right lower lobe nodule image 176 series 2 is similar. Small 3 mm left lower lobe nodule image 127 series 2 is similar. No new suspicious pulmonary nodularity is identified. There again has been a median sternotomy. There is coronary calcification. Thoracic aortic caliber is stable, maximal tubular ascending thoracic aorta about 3.5 cm. Aortic root measures about 3.6 cm. There are some calcifications of the aortic valvular leaflets. There is no pleural or pericardial fluid, pneumothorax, or infiltrate. No significantly enlarged nodes are identified of the chest. There is no abnormality of the visualized thyroid gland. There is degenerative change of the left shoulder. There is cholelithiasis. Not fully evaluated, there is stent in the abdominal aorta. There is a 15 mm cyst of the superior right kidney. There is some variable thinning and lobulation of the bilateral kidneys. IMPRESSION: 1. Small pulmonary nodules are unchanged, no new suspicious pulmonary nodularity. No additional follow-up is needed if low risk factors for neoplasm, as per revised Fleischner guidelines. 2. There is cholelithiasis. Electronically signed by: Cristi Cobb MD (10/10/2019 1:58 PM) [id number]
== END | disposition home or self-care (01) ==
LOC: CT 13:11
PROVIDERS: ATTEND Internal Medicine Critical Care Medicine
DX: R91.8 Other nonspecific abnormal finding of lung field (principal); K80.20 Calculus of gallbladder without cholecystitis without obstruction; I25.10 Atherosclerotic heart disease of native coronary artery without angina pectoris; I70.0 Atherosclerosis of aorta; N28.1 Cyst of kidney, acquired
CPT/HCPCS: 71250

== ENCOUNTER 2019-11-23 18:21 | Emergency (ER) | payer MEDICARE ==
[~2019-11-23] VITALS: Ht 165.1 cm; Wt 62.0 kg
[2019-11-23] MEDS ORDERED: IV NORMAL SALINE 1,000ML 1,000 ML IV ONE (19:00)
--- NOTE | 2019-11-23 19:10 | RAD ---
RS Compliance Statement: One or more of the following individualized dose reduction techniques were utilized for this examination: 1. Automated exposure control 2. Adjustment of the mA and/or kV according to patient size 3. Use of iterative reconstruction technique CT head without contrast 11/23/2019 6:46 PM INDICATION: Altered mental status, weakness COMPARISON: None available TECHNIQUE: Multiple axial CT images of the head were obtained from skull base through the vertex without intravenous contrast. FINDINGS: Head: Ventricles, sulci and basal cisterns are prominent compatible with mild generalized cerebral volume loss. There is no hydrocephalus. Ambriz-white matter differentiation is normal. There is no acute intracranial hemorrhage. There is no mass, mass effect or midline shift. There is a remote lacunar infarct in the left cerebellum measuring 6 mm (series 2, image 10). Visualized portions of the orbits are normal. Paranasal sinuses are well aerated. Mastoid air cells are well aerated. Scalp and calvaria are normal. IMPRESSION: No acute intracranial hemorrhage. Mild generalized cerebral volume loss. 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 Electronically signed by: Tanja Hernandez MD (11/23/2019 7:08 PM) [facility]
--- NOTE | 2019-11-23 19:18 | RAD ---
EXAM: AP View of the chest DATE: 11/23/2019 6:46 PM INDICATION: Altered mental status, weakness, short of air COMPARISON: No Prior FINDINGS: The heart is not enlarged. Changes of CABG are seen. Mediastinal and hilar contours are normal. Linear opacities left greater than right lung base likely scarring/atelectasis. Otherwise, no focal parenchymal airspace opacity. No pleural effusion or pneumothorax. Exam is limited by patient rotation. IMPRESSION: 1. No radiographic evidence for acute cardiopulmonary process. Electronically signed by: Julio César Mack MD (11/23/2019 7:15 PM) REYES
--- NOTE | 2019-11-23 19:34 | EKG ---
[address] [address] Test Date: 2019-11-23 Test Time: 19:15:12 Pat Name: JODY GASTON Department: Room: Gender: M Title Inspector: : 1940 Requested By: ROSSY GASTELUM Order Number: [id number] Reading MD: Measurements Intervals [place] Rate: 54 P: -27 OK: 166 QRS: -34 QRSD: 116 T: -26 QT: 592 QTc: 564 Interpretive Statements SINUS RHYTHM VENTRICULAR PREMATURE COMPLEX(ES) ABNORMAL LEFT AXIS DEVIATION QRS(T) CONTOUR ABNORMALITY CONSIDER INFERIOR INFARCT ABNORMAL ECG RI6.02 No previous ECG available for comparison
--- NOTE | 2019-11-23 19:34 | PHYS DOC ---
Past History Past Medical History: Anxiety, CAD, Dementia, Hypertension, Prostatitis, Other Additional Past Medical Histor: Parkinsons Past Medical History Limited secondary to dementia Past Surgical History: No Surgical History Past Surgical History Limited secondary to dementia Smoking: Non-smoker Alcohol Use: None Drug Use: None Social History Limited secondary to dementia General Adult EDM: Chief Complaint: ALTERED MENTAL STATUS HPI: HPI: 79-year-old male with past medical history of dementia and parkinsonism presents from home with his daughter with report of increased confusion that has been progressive over the last several months. Daughter reports concern that today he was reporting that his medications were not his and that the TV in his [employer] cup was something else. Denies chest pain or nausea or vomiting. Denies recent fall or trauma. Denies fever or chills. Patient has been pleasant and not aggressive. Family reports concerned that he might have something else wrong other than his dementia. History of present illness limited secondary to dementia. Review of Systems: Review of Systems: Constitutional: Denies fever or chills Respiratory: Denies cough or shortness of breath Cardiovascular: Denies chest pain or palpitations Integument: Denies rash or skin lesions Neurologic: Reports increased confusion Review of systems limited secondary to dementia Current Medications: Current Meds: Current Medications Medications (Trade) Dose Ordered Sig/Charisse Start Time Stop Time Status Last Admin Dose Admin Sodium Chloride 1,000 ml @ 1,000 mls/hr 1X ONCE 11/23/19 19:00 11/23/19 19:59 Allergies: Allergies: Allergies Coded Allergies Type Severity Reaction Last Updated Verified No Known Drug Allergies 02/01/14 No Physical Exam: PE: Constitutional: Well developed, well nourished, no acute distress, hard of hearing HENT: Normocephalic, atraumatic Eyes: PERRL, EOMI, conjunctiva normal, no discharge Neck: Normal range of motion, no tenderness, supple Lungs & Thorax: No respiratory distress, equal chest rise and fall Abdomen: Soft, no tenderness Skin: Warm, dry, no erythema, no rash Extremities: No tenderness, ROM intact, 1+ BLE edema, resting tremor primarily to right arm Neurologic: Alert and oriented x name only, GCS 14 (eye 4, verbal 4, motor 6), no focal deficits noted Psychologic: Affect normal, judgment abnormal Current Patient Data: Vital Signs: Vital Signs Date Time Temp Pulse Resp B/P (MAP) Pulse Ox O2 Delivery O2 Flow Rate FiO2 11/23/19 18:49 98.2 64 16 140/72 (94) 94 EKG: EKG: @1915 Sinus bradycardia at 54bpm, NO ST elevation, occasional PVC, QRS 116ms, QT/QTc 592/564ms, baseline artifact. Radiology/Procedures: Radiology/Procedures: PROCEDURE: CT HEAD WO CONTRAST PQRS Compliance Statement: One or more of the following individualized dose reduction techniques were utilized for this examination: 1. Automated exposure control 2. Adjustment of the mA and/or kV according to patient size 3. Use of iterative reconstruction technique CT head without contrast 11/23/2019 6:46 PM INDICATION: Altered mental status, weakness COMPARISON: None available TECHNIQUE: Multiple axial CT images of the head were obtained from skull base through the vertex without intravenous contrast. FINDINGS: Head: Ventricles, sulci and basal cisterns are prominent compatible with mild generalized cerebral volume loss. There is no hydrocephalus. Ambriz-white matter differentiation is normal. There is no acute intracranial hemorrhage. There is no mass, mass effect or midline shift. There is a remote lacunar infarct in the left cerebellum measuring 6 mm (series 2, image 10). Visualized portions of the orbits are normal. Paranasal sinuses are well aerated. Mastoid air cells are well aerated. Scalp and calvaria are normal. IMPRESSION: No acute intracranial hemorrhage. Mild generalized cerebral volume loss. 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 Electronically signed by: Tanja Hernandez MD (11/23/2019 7:08 PM) [facility] PROCEDURE: CHEST AP ONLY EXAM: AP View of the chest DATE: 11/23/2019 6:46 PM INDICATION: Altered mental status, weakness, short of air COMPARISON: No Prior FINDINGS: The heart is not enlarged. Changes of CABG are seen. Mediastinal and hilar contours are normal. Linear opacities left greater than right lung base likely scarring/atelectasis. Otherwise, no focal parenchymal airspace opacity. No pleural effusion or pneumothorax. Exam is limited by patient rotation. IMPRESSION: 1. No radiographic evidence for acute cardiopulmonary process. Electronically signed by: Julio César Mack MD (11/23/2019 7:15 PM) [facility] Course & Med Decision Making: Course & Med Decision Making Pertinent Labs and Imaging studies reviewed. (See chart for details) Patient with past medical history of dementia and Parkinson's disease presents with concern for increased confusion that has been progressive over the last several months. Patient appears neurologically at his baseline. Patient is afebrile. EKG stable. Labs obtained and posted to chart. WBC, lactic acid, and ammonia within normal limits. UA without signs of infection. CT head stable. Chest x-ray without acute process. Discussed with father that this confusion may be progression of his baseline dementia combined with parkinsonism. Offered observation admission which patient and family declined. Report they will follow closely with his physicians. Patient stable for discharge with outpatient follow-up with PCP/neurologist. Discussed findings and plan with patient and family, who acknowledge unde rstanding and agreement. Dragon Disclaimer: Dragon Disclaimer: This electronic medical record was generated, in whole or in part, using a voice recognition dictation system. Departure Departure: Impression: Primary Impression: Dementia Qualified Codes: F03.90 - Unspecified dementia without behavioral disturbance Additional Impression: Confusion Disposition: 01 HOME/RESIDENCE PRIOR TO ADM Condition: STABLE Referrals: CLAUDIA RAZA MD (PCP) Patient Instructions: Confusion, Dementia, [id number] Justification of Admission: Justification of Admission: Justification of Admission Dx: N/A NIHSS - ED NIH Stroke Scale: NIH Stroke Scale Response (Comments) Value Level of Consciousness: 0 Alert/Responsive 0 LOC Questions: 1 Answers one correctly 1 LOC Commands: 0 Performs both tasks 0 Best Gaze: 0 Normal 0 Visual: 0 No visual loss 0 Facial Palsy: 0 Normal, symmetrical 0 Motor - Left Arm 0 No drift 0 Motor - Right Arm 0 No drift 0 Motor - Left Leg 0 No drift 0 Motor: Right Leg 0 No drift 0 Limb Ataxia: 0 Absent 0 Sensory: 0 No loss 0 Best Language: 0 Normal 0 Dysathria: 0 Normal 0 Extinction and Inattention: 0 Normal 0 Total 1 ROSSY GASTELUM DO Nov 23, 2019 19:34
[2019-11-23 19:38] LABS: BILIRUBIN,URINE NEG (NEG); CLARITY,URINE CLEAR; COLOR,URINE YELLOW; GLUCOSE,URINE NEG (NEG)
[2019-11-23 19:39] LABS: AMPHETAMINE/METHAMPHETAMINE NEG (NEG); BACTERIA,URINE 0 /HPF (0-FEW); BARBITURATES NEG (NEG); BENZODIAZEPINES NEG (NEG); CANNABINOIDS NEG (NEG); COCAINE NEG (NEG); METHADONE NEG (NEG); NITRITE,URINE NEG (NEG); OPIATES NEG (NEG); PHENCYCLIDINE NEG (NEG); RBC,URINE RARE /HPF (0-2); SQUAMOUS EPITHELIAL CELL,UR OCC /LPF; UROBILINOGEN,URINE 0.2 mg/dL (0.2 mg/dL); WBC,URINE RARE /HPF (0-4)
[2019-11-23 19:46] LABS: BASO # 0.1 x10^3/uL (0.0-0.2); BASO % 1 % (0-3); EOS # 0.1 x10^3/uL (0.0-0.7); EOS % 1 % (0-3); HEMATOCRIT 46.2 % (39.0-53.0); HEMOGLOBIN 15.3 g/dL (13.0-17.5); LYMPH # 0.9 x10^3/uL (1.0-4.8); LYMPH % 16 % (24-48); MEAN CORPUSCULAR HEMOGLOBIN 30 pg (25-35); MEAN CORPUSCULAR HGB CONC 33 g/dL (31-37); MEAN CORPUSCULAR VOLUME 91 fL (79-100); MONO # 0.4 x10^3/uL (0.0-1.1); MONO % 7 % (0-9); NEUT # 4.1 x10^3uL (1.8-7.7); NEUT % 75 % (31-73); PLATELET COUNT 205 x10^3/uL (140-400); RED BLOOD COUNT 5.06 x10^6/uL (4.30-5.70); RED CELL DISTRIBUTION WIDTH 15.5 % (11.5-14.5); WHITE BLOOD COUNT 5.5 x10^3/uL (4.0-11.0)
[2019-11-23 19:55] LABS: CALCIUM 9.2 mg/dL (8.5-10.1); CREATININE 1.5 mg/dL (0.7-1.3); GFR 44.9; POTASSIUM 4.1 mmol/L (3.5-5.1)
[2019-11-23 20:11] LABS: ALBUMIN/GLOBULIN RATIO 1.3 (1.0-1.7); MAGNESIUM 1.9 mg/dL (1.8-2.4); TOTAL BILIRUBIN 0.9 mg/dL (0.2-1.0); TOTAL PROTEIN 7.1 g/dL (6.4-8.2)
[2019-11-23 21:13] VITALS: BP 161/81
== END 2019-11-23 21:15 | disposition home or self-care (01) ==
LOC: ER 18:21
DX: F03.90 Unspecified dementia, unspecified severity, without behavioral disturbance, psychotic disturbance, mood disturbance, and anxiety (principal); R41.0 Disorientation, unspecified; F41.9 Anxiety disorder, unspecified; I10 Essential (primary) hypertension; I25.10 Atherosclerotic heart disease of native coronary artery without angina pectoris; N41.9 Inflammatory disease of prostate, unspecified
CPT/HCPCS: 36415; 70450; 71045; 80053; 80307; 81001; 82140; 82553; 83605; 83735; 83880; 84484; 85025; 85610; 85730; 93005; 96360; 96361; 99285; J7030

== ENCOUNTER 2019-12-11 17:49 | Emergency (ER) | payer MEDICARE ==
[~2019-12-11] VITALS: Ht 177.8 cm; Wt 63.5 kg
[2019-12-11] MEDS ORDERED: IV NORMAL SALINE 1,000ML 1,000 ML IV ONE (18:00)
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
--- NOTE | 2019-12-11 18:13 | EKG ---
[address] [address] Test Date: 2019-12-11 Test Time: 18:01:43 Pat Name: JODY GASTON Department: Room: Gender: M [employer]: : 1940 Requested By: KACI RUSH Order Number: [id number] Reading MD: Measurements Intervals [place] Rate: 66 P: 38 WI: 168 QRS: -47 QRSD: 114 T: 0 QT: 452 QTc: 476 Interpretive Statements SINUS RHYTHM ABNORMAL LEFT AXIS DEVIATION R-S TRANSITION ZONE IN V LEADS DISPLACED TO THE RIGHT QRS(T) CONTOUR ABNORMALITY CONSISTENT WITH INFERIOR INFARCT AGE UNDETERMINED ABNORMAL ECG RI6.02 No previous ECG available for comparison
--- NOTE | 2019-12-11 18:31 | RAD ---
Exam performed: One view chest. Indication: Reason: short of air / Spl. Instructions: / History: Date of Service: 12/11/2019 5:59 PM Comparison: One view chest from November 23, 2019. Single AP , right portable view chest findings: Cardiomediastinal silhouette is within limits of normal. Previous median sternotomy. And CABG No acute infiltrates, effusion or pneumothorax is detected. The bony structures are normal. Impression: No acute cardiopulmonary process is detected. Electronically signed by: Shanika Partida MD (12/11/2019 6:29 PM) [facility]
[2019-12-11 18:34] LABS: BASO % 1 % (0-3); EOS # 0.1 x10^3/uL (0.0-0.7); EOS % 2 % (0-3); HEMATOCRIT 44.5 % (39.0-53.0); LYMPH # 0.7 x10^3/uL (1.0-4.8); LYMPH % 12 % (24-48); MEAN CORPUSCULAR HEMOGLOBIN 31 pg (25-35); MEAN CORPUSCULAR HGB CONC 34 g/dL (31-37); MEAN CORPUSCULAR VOLUME 91 fL (79-100); MONO # 0.5 x10^3/uL (0.0-1.1); MONO % 9 % (0-9); NEUT # 4.1 x10^3uL (1.8-7.7); NEUT % 76 % (31-73); PLATELET COUNT 157 x10^3/uL (140-400); RED BLOOD COUNT 4.88 x10^6/uL (4.30-5.70); RED CELL DISTRIBUTION WIDTH 15.6 % (11.5-14.5); WHITE BLOOD COUNT 5.3 x10^3/uL (4.0-11.0)
[2019-12-11 18:41] LABS: CALCIUM 8.8 mg/dL (8.5-10.1); CREATININE 1.6 mg/dL (0.7-1.3); GFR 41.7; POTASSIUM 3.9 mmol/L (3.5-5.1)
[2019-12-11 18:53] LABS: ALBUMIN 3.5 g/dL (3.4-5.0); MAGNESIUM 1.8 mg/dL (1.8-2.4); TOTAL BILIRUBIN 0.4 mg/dL (0.2-1.0); TOTAL PROTEIN 6.9 g/dL (6.4-8.2)
[2019-12-11 20:16] LABS: BACTERIA,URINE 0 /HPF (0-FEW); BILIRUBIN,URINE NEG (NEG); CLARITY,URINE CLEAR; COLOR,URINE YELLOW; GLUCOSE,URINE NEG (NEG); NITRITE,URINE NEG (NEG); RBC,URINE OCC /HPF (0-2); SQUAMOUS EPITHELIAL CELL,UR OCC /LPF; UROBILINOGEN,URINE 0.2 mg/dL (0.2 mg/dL); WBC,URINE OCC /HPF (0-4)
[2019-12-11 21:37] LABS: AMPHETAMINE/METHAMPHETAMINE NEG (NEG); BARBITURATES NEG (NEG); BENZODIAZEPINES NEG (NEG); CANNABINOIDS NEG (NEG); COCAINE NEG (NEG); METHADONE NEG (NEG); OPIATES NEG (NEG); PHENCYCLIDINE NEG (NEG)
[2019-12-12 00:20] VITALS: BP 138/80
== END 2019-12-12 16:48 ==
LOC: ER 17:49
DX: R44.3 Hallucinations, unspecified (principal); R45.6 Violent behavior; Z20.818 Contact with and (suspected) exposure to other bacterial communicable diseases; F41.9 Anxiety disorder, unspecified; I11.9 Hypertensive heart disease without heart failure; G20 Parkinson's disease; F02.81 Dementia in other diseases classified elsewhere, unspecified severity, with behavioral disturbance
CPT/HCPCS: 36415; 71045; 80053; 80307; 81001; 83735; 85025; 93005; 99285; J7030; U0003